=== PATIENT | female | born 1960 | race Caucasian/White ===

== ENCOUNTER 2017-08-12 18:08 | Emergency (ER) | payer BC | END 2017-08-12 21:32 | disposition home or self-care (01) | LOC: D.ER 18:08 | DX: S06.0X0A Concussion without loss of consciousness, initial encounter (principal); V43.52XA Car driver injured in collision with other type car in traffic accident, initial encounter; Y93.89 Activity, other specified; Y92.410 Unspecified street and highway as the place of occurrence of the external cause; S29.012A Strain of muscle and tendon of back wall of thorax, initial encounter ==

== ENCOUNTER → 2018-11-13 09:53 | Outpatient (CLI) | payer BC | END | disposition home or self-care (01) | LOC: D.RAD 09:53 | DX: M25.552 Pain in left hip (principal) ==

== ENCOUNTER → 2018-12-11 17:46 | Outpatient (CLI) | payer BC | END | disposition home or self-care (01) | LOC: D.MAMMO 11:30 | DX: Z12.31 Encounter for screening mammogram for malignant neoplasm of breast (principal) ==